=== PATIENT | male | born 1970 | race Caucasian/White ===

== ENCOUNTER 2017-02-07 06:36 | Observation (INO) | payer SELFPAY ==
[~2017-02-07] VITALS: Ht 182.9 cm; Wt 84.8 kg
--- NOTE | 2017-02-07 06:47 | PHYS DOC ---
Past Medical History Past Medical History: Kidney Stone, Other Additional Past Medical Histor: horshe kidney Past Surgical History: Other Additional Past Surgical Histo: lithotripsy Alcohol Use: Occasionally Drug Use: None Adult General Chief Complaint Chief Complaint: ABDOMINAL PAIN HPI HPI Patient is a 46 year old male who presents with left lower quadrant pain that radiates into his left testicle. He states this is same pains had before is a kidney stone. States he woke up this morning around 5 AM and started having this pain. This is constant in nature. He states it feels exactly like the last time he had his kidney stone. He didn't vomit one secondary to pain denies any blood in his vomit. He denies any dysuria but he has not had a chance urinate this morning as of yet. He denies any testicular pain but the pain does radiate into his testicle. Review of Systems Review of Systems Constitutional: Denies fever or chills [] Eyes: Denies change in visual acuity, redness, or eye pain [] HENT: Denies nasal congestion or sore throat [] Respiratory: Denies cough or shortness of breath [] Cardiovascular: No additional information not addressed in HPI [] GI: Denies , bloody stools or diarrhea , positive for abdominal pain, nausea, vomiting. : Denies dysuria or hematuria [] Musculoskeletal: Denies back pain or joint pain [] Integument: Denies rash or skin lesions [] Neurologic: Denies headache, focal weakness or sensory changes [] Endocrine: Denies polyuria or polydipsia [] Current Medications Current Medications Current Medications Medications (Trade) Dose Ordered Sig/Álvaro Start Time Stop Time Status Last Admin Dose Admin Hydromorphone HCl (Dilaudid) 1 mg PRN Q15MIN PRN 02/07/17 07:00 02/08/17 06:59 02/07/17 09:50 1 MG Iohexol (Omnipaque 300 Mg/ml) 75 ml 1X ONCE 02/07/17 09:00 02/07/17 09:01 UNV Morphine Sulfate 4 mg PRN Q15MIN PRN 02/07/17 07:00 02/07/17 07:00 DC Norepinephrine Bitartrate 250 ml @ 0 mls/hr 1X ONCE 02/07/17 08:00 02/07/17 08:01 UNV Sodium Chloride 1,000 ml @ 1,000 mls/hr 1X ONCE 02/07/17 08:00 02/07/17 08:59 DC 02/07/17 09:49 1,000 MLS/HR Allergies Allergies Allergies Coded Allergies Type Severity Reaction Last Updated Verified Iodinated Contrast Media - Oral and Allergy Severe 10/26/16 Yes NSAIDS (Non-Steroidal Anti-Inflamma Allergy Intermediate 10/26/16 Yes ketorolac Allergy Intermediate 10/26/16 Yes Physical Exam Physical Exam Constitutional: Well developed, well nourished, no acute distress, non-toxic appearance. [] HENT: Normocephalic, atraumatic, bilateral external ears normal, oropharynx moist, no oral exudates, nose normal. [] Eyes: PERRLA, EOMI, conjunctiva normal, no discharge. [] Neck: Normal range of motion, no tenderness, supple, no stridor. [] Cardiovascular:Heart rate regular rhythm, no murmur [] Lungs & Thorax: Bilateral breath sounds clear to auscultation [] Abdomen: Bowel sounds normal, soft, tender to palpation in the left lower flank , no rebound or guarding noted, no masses, no pulsatile masses. Testicles nontender, no masses appreciated bilaterally Skin: Warm, dry, no erythema, no rash. [] Back: No tenderness, no CVA tenderness. [] Extremities: No tenderness, no cyanosis, no clubbing, ROM intact, no edema. [] Neurologic: Alert and oriented X 3, normal motor function, normal sensory function, no focal deficits noted. [] Psychologic: Affect normal, judgement normal, mood normal. [] Current Patient Data Vital Signs Vital Signs Date Time Temp Pulse Resp B/P (MAP) Pulse Ox O2 Delivery O2 Flow Rate FiO2 02/07/17 09:50 14 02/07/17 06:49 98.1 105 167/103 (124) 100 Room Air 98.1 Lab Values Laboratory Tests Test 02/07/17 07:50 Urine Collection Type Unknown Urine Color Yellow Urine Clarity Clear Urine pH 7.5 Urine Specific [place] 1.020 Urine Protein Negative mg/dL (NEG-TRACE) Urine Glucose (UA) Negative mg/dL (NEG) Urine Ketones (Stick) Negative mg/dL (NEG) Urine Blood Negative (NEG) Urine Nitrite Negative (NEG) Urine Bilirubin Negative (NEG) Urine Urobilinogen Dipstick 1.0 mg/dL (0.2 mg/dL) Urine Leukocyte Esterase Negative (NEG) Urine RBC 0 /HPF (0-2) Urine WBC 0 /HPF (0-4) Urine Squamous Epithelial Cells Few /LPF Urine Bacteria 0 /HPF (0-FEW) Urine Mucus Marked /LPF Urine Opiates Screen Pos (NEG) Urine Methadone Screen Neg (NEG) Urine Barbiturates Neg (NEG) Urine Phencyclidine Screen Neg (NEG) Urine Amphetamine/Methamphetamine Pos (NEG) Urine Benzodiazepines Screen Neg (NEG) Urine Cocaine Screen Neg (NEG) Urine Cannabinoids Screen Neg (NEG) Urine Ethyl Alcohol Pos (NEG) EKG EKG [] Radiology/Procedures Radiology/Procedures [facility] [address] [place], [place] [id number] IMAGING REPORT Signed PATIENT: LAXMI TAVERAS ACCOUNT: [id number] : 1970 LOCATION: ER AGE: 46 SEX: M EXAM STATUS: REG ER ORD. PHYSICIAN: LEANNE HUNTER MD REASON: abd pain, ALLERGY TO IODINE PROCEDURE: CT ABDOMEN PELVIS WO CONTRAST Indication abdominal pain. Left flank pain. Hematuria. The history of prior renal calculi and lithotripsy is noted. Axial images through the abdomen and pelvis were obtained. The examination was tailored for the detection of renal and/or ureteral calculi. Note is made of a similar examination October 25, 2016. The lung bases are clear. The liver and spleen appear unremarkable and the gallbladder appears grossly normal. No adrenal pathology is seen. 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 There may be a minute left renal calculus. No hydronephrosis hydroureter or calcification is seen along the course of either ureter. No pancreatic abnormality is seen. Acute finding in the abdomen is not seen. No acute finding is apparent in the pelvis. IMPRESSION: No acute finding seen in the abdomen or pelvis PQRS Compliance Statement: One or more of the following individualized dose reduction techniques were utilized for this examination: 1. Automated exposure control 2. Adjustment of the mA and/or kV according to patient size 3. Use of iterative reconstruction technique DICTATED and SIGNED BY: MARCY CAMARILLO MD DATE: 02/07/17 0936 CC: LEANNE HUNTER MD; NO PCP ~ Course & Med Decision Making Course & Med Decision Making Pertinent Labs and Imaging studies reviewed. (See chart for details) Patient's abdominal pain is persistent and requiring IV Dilaudid. He is tachycardic. His urine does show signs of meth/amphetamines. He denies any use. He has received 2 L of normal saline and is being admitted with a CT scan that does not show any acute processes abdomen or pelvis. Patient's agreeable plans in stable condition this time with interim orders being written to Dr. Marie. Jean Disclaimer Jean Disclaimer This electronic medical record was generated, in whole or in part, using a voice recognition dictation system. Departure Departure Impression: Primary Impression: Abdominal pain Disposition: ADMITTED INPATIENT Admitting Physician: Jessica Marie Condition: STABLE Referrals: NO PCP (PCP) Problem Qualifiers Primary Impression: Abdominal pain Abdominal location: left lower quadrant Qualified Codes: R10.32 - Left lower quadrant pain LEANNE HUNTER MD February 07, 2017 06:47
[2017-02-07] MEDS ORDERED: MORPHINE SULFATE 4 MG/ML DISP.SYRIN. IV/SQ PRN (07:00)
[2017-02-07] MEDS ORDERED: IV NORMAL SALINE 1000ML BAG 1,000 ML IV SCH (07:00)
[2017-02-07] MEDS: HYDROmorphone 2 MG/ML VIAL IV/SQ PRN ×4 (07:26→09:50)
[2017-02-07 08:00] LABS: BILIRUBIN,URINE NEGATIVE (NEG); GLUCOSE,URINE NEGATIVE (NEG); NITRITE,URINE NEGATIVE (NEG); PH,URINE 7.5; PROTEIN,URINE NEGATIVE (NEG-TRACE)
[2017-02-07] MEDS ORDERED: IV NORMAL SALINE 1000ML BAG 1,000 ML IV ONE (08:00)
[2017-02-07] MEDS ORDERED: NOREPINEPHRIN PREMIX 250 ML IV ONE (08:00)
[2017-02-07 08:08] LABS: BARBITURATES NEG (NEG); BENZODIAZEPINES NEG (NEG); CANNABINOIDS NEG (NEG); COCAINE NEG (NEG); METHADONE NEG (NEG); OPIATES POS (NEG); PHENCYCLIDINE NEG (NEG)
[2017-02-07 08:29] LABS: BACTERIA,URINE 0 /HPF (0-FEW); RBC,URINE 0 /HPF (0-2); SQUAMOUS EPITHELIAL CELL,UR FEW /LPF; WBC,URINE 0 /HPF (0-4)
[2017-02-07] MEDS ORDERED: IOHEXOL 300 MG/ML 75 ML VIAL IV ONE (09:00)
--- NOTE | 2017-02-07 09:48 | RAD ---
Indication abdominal pain. Left flank pain. Hematuria. The history of prior renal calculi and lithotripsy is noted. Axial images through the abdomen and pelvis were obtained. The examination was tailored for the detection of renal and/or ureteral calculi. Note is made of a similar examination October 25, 2016. The lung bases are clear. The liver and spleen appear unremarkable and the gallbladder appears grossly normal. No adrenal pathology is seen. 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 There may be a minute left renal calculus. No hydronephrosis hydroureter or calcification is seen along the course of either ureter. No pancreatic abnormality is seen. Acute finding in the abdomen is not seen. No acute finding is apparent in the pelvis. IMPRESSION: No acute finding seen in the abdomen or pelvis PQRS Compliance Statement: One or more of the following individualized dose reduction techniques were utilized for this examination: 1. Automated exposure control 2. Adjustment of the mA and/or kV according to patient size 3. Use of iterative reconstruction technique
[2017-02-07 11:31] LABS: BASO % 0 % (0-3); EOS % 0 % (0-3); HEMATOCRIT 39.3 % (39.0-53.0); HEMOGLOBIN 13.4 g/dL (13.0-17.5); LYMPH # 0.9 x10^3/uL (1.0-4.8); LYMPH % 18 % (24-48); MEAN CORPUSCULAR HEMOGLOBIN 30 pg (25-35); MEAN CORPUSCULAR HGB CONC 34 g/dL (31-37); MEAN CORPUSCULAR VOLUME 88 fL (79-100); MONO % 8 % (0-9); NEUT % 74 % (31-73); PLATELET COUNT 173 x10^3/uL (140-400); RED BLOOD COUNT 4.49 x10^6/uL (4.30-5.70); RED CELL DISTRIBUTION WIDTH 14.2 % (11.5-14.5); WHITE BLOOD COUNT 5.2 x10^3/uL (4.0-11.0)
[2017-02-07 11:43] LABS: CALCIUM 8.1 mg/dL (8.5-10.1); CREATININE 0.8 mg/dL (0.7-1.3); GFR 103.6
[2017-02-07 11:49] LABS: ALBUMIN 3.1 g/dL (3.4-5.0); DIRECT BILIRUBIN 0.1 mg/dL (0.0-0.2); TOTAL BILIRUBIN 0.2 mg/dL (0.2-1.0); TOTAL PROTEIN 6.9 g/dL (6.4-8.2)
[2017-02-07 11:50] LABS: POTASSIUM 3.8 mmol/L (3.5-5.1)
[2017-02-07 11:54] LABS: INR 1.1 (0.8-1.1); PROTHROMBIN TIME PATIENT 13.3 SEC (11.7-14.0)
[2017-02-07 11:55] LABS: CKMB MASS 1.5 ng/mL (0.0-3.6)
[2017-02-07] MEDS ORDERED: MULTIVIT INFUSN,ADULT 4,VIT K 10 ML, FOLIC ACID 1 MG, THIAMINE 100 MG in IV RINGERS,LAC... IV ONE (12:30)
[2017-02-07] MEDS ORDERED: MORPHINE SULFATE 4 MG/ML DISP.SYRIN. IV PRN (12:30)
[2017-02-07] MEDS ORDERED: oxyCODONE IR 5 MG TABLET PO PRN (12:30)
[2017-02-07] MEDS: fentaNYL PF VIAL 100 MCG/2 ML VIAL IV PRN ×5 (14:52→22:27)
[2017-02-07 15:00] VITALS: BP 142/93
--- NOTE | 2017-02-07 15:13 | PDOC1 ---
History and Physical Date of Admission Date of Admission DATE: 02/07/17 TIME: 15:09 Identification/Chief Complaint Chief Complaint flank pain, left Problems: Source Source: Chart review, Patient History of Present Illness History of Present Illness Mr. Cooper, is a 46 year old male admit w. acute left lower quadrant pain. New flank pain to groin, prior hx of kidney stone. pain started 0500, is improved a little since presenting to the ER He is eating well, normal stool, no pain with stooling no pain to palpation to flank or abdomen or scrotum or testicle Past Medical History Past Medical History owns a [employer] Cardiovascular: No pertinent hx Pulmonary: No pertinent hx GI: No pertinent hx Heme/Onc: No pertinent hx Hepatobiliary: No pertinent hx Psych: No pertinent hx Family History Family History: No Significant Social History Smoke: No ALCOHOL: occassional Drugs: None Current Problem List Problem List Problems Medical Problems: (1) Abdominal pain Status: Acute Problems: Current Medications Current Medications Current Medications Morphine Sulfate 4 mg PRN Q15MIN PRN IV/SQ PAIN GREATER THAN 3/10; Start at 07:00; Stop 02/07/17 at 07:00; Status DC Sodium Chloride 1,000 ml @ 1,000 mls/hr Q1H IV Last administered on 02/07/17 07:00; Start 02/07/17 at 07:00; Stop 02/07/17 at 07:59; Status DC Hydromorphone HCl (Dilaudid) 1 mg PRN Q15MIN PRN IV/SQ PAIN GREATER THAN 3/10 Last administered on 02/07/17 09:50; Start 02/07/17 at 07:00; Stop 02/08/17 at 06: 59 Norepinephrine Bitartrate 250 ml @ 0 mls/hr 1X ONCE IV ; Start 02/07/17 at 08:00 ; Stop 02/07/17 at 08:01; Status UNV Sodium Chloride 1,000 ml @ 1,000 mls/hr 1X ONCE IV Last administered on 09:49; Start 02/07/17 at 08:00; Stop 02/07/17 at 08:59; Status DC Iohexol (Omnipaque 300 Mg/ml) 75 ml 1X ONCE IV ; Start 02/07/17 at 09:00; Stop 02/07/17 at 09:01; Status UNV Oxycodone HCl (Roxicodone) 5 mg PRN Q6HRS PRN PO PAIN Last administered on 13:25; Start 02/07/17 at 12:30 Morphine Sulfate 4 mg PRN Q2HR PRN IV PAIN; Start 02/07/17 at 12:30; Stop at 12:46; Status DC Multivitamins 10 ml/Folic Acid 1 mg/Thiamine HCl 100 mg/Ringer's Solution 1, 011.2 ml @ 1,000 mls/ hr 1X ONCE IV Last administered on 02/07/17 13:49; Start 02/07/17 at 12:30; Stop 02/07/17 at 13:30; Status DC Fentanyl Citrate (Fentanyl 2ml Vial) 50 mcg PRN Q2HR PRN IV PAIN Last administered on 02/07/17 14:52; Start 02/07/17 at 12:45 Allergies Allergies: Coded Allergies: Iodinated Contrast Media - Oral and (Verified Allergy, Severe, 10/26/16) morphine (Verified Allergy, Severe, Shortness of Air, 02/07/17) NSAIDS (Non-Steroidal Anti-Inflamma (Verified Allergy, Intermediate, ) ketorolac (Verified Allergy, Intermediate, 10/26/16) ROS General: No: Chills, Night Sweats, Fatigue, Malaise, Appetite, Other PSYCHOLOGICAL ROS: No: Anxiety, Behavioral Disorder, Concentration difficultie , Decreased libido, Depression, Disorientation, Hallucinations, Hostility, Irritablity, Memory difficulties, Mood Swings, Obsessive thoughts, Physical abuse, Sexual abuse, Sleep disturbances, Suicidal ideation, Other Eyes: No Blurry vision, No Decreased vision, No Double vision, No Dry eyes, No Excessive tearing, No Eye Pain, No Itchy Eyes, No Loss of vision, No Photophobia , No Scotomata, No Uses contacts, No Uses glasses, No Other HEENT: No: Heacaches, Visual Changes, Hearing change, Nasal congestion, Nasal discharge, Oral lesions, Sinus pain, Sore Throat, Epistaxis, Sneezing, Snoring, Tinnitus, Vertigo, Vocal changes, Other Respiratory: No: Cough, Hemoptysis, Orthopnea, Pleuritic Pain, Shortness of breath, SOB with excertion, Sputum Changes, Stridor, Tachypnea, Wheezing, Other Cardiovascular: No Chest Pain, No Palpitations, No Orthopnea, No Paroxysmal Noc. Dyspnea, No Edema, No Lt Headedness, No Other Gastrointestinal: Yes Nausea, Yes Abdominal Pain, No Vomiting, No Diarrhea, No Constipation, No Melena, No Hematochezia, No Other Genitourinary: No Dysuria, No Frequency, No Incontinence, No Hematuria, No Retention, No Discharge, No Urgency, No Pain, No Flank Pain, No Other, No , No , No , No , No , No , No Musculoskeletal: No Gait Disturbance, No Joint Pain, No Joint Stiffness, No Joint Swelling, No Muscle Pain, No Muscular Weakness, No Pain In:, No Swelling In:, No Other Neurological: No Behavorial Changes, No Bowel/Bladder ControlChng, No Confusion , No Dizziness, No Gait Disturbance, No Headaches, No Impaired Coord/balance, No Memory Loss, No Numbness/Tingling, No Seizures, No Speech Problems, No Tremors, No Visual Changes, No Weakness, No Other Skin: No Dry Skin, No Eczema, No Hair Changes, No Lumps, No Mole Changes, No Mottling, No Nail Changes, No Pruritus, No Rash, No Skin Lesion Changes, No Other, No Acne Physical Exam General: Alert, Oriented X3, Cooperative, No acute distress HEENT: PERRLA, EOMI, Mucous membr. moist/pink Lungs: Normal air movement Heart: no gallops, no murmurs Abdomen: Normal bowel sounds, Soft Extremities: No clubbing, No cyanosis, No edema Skin: No rashes, No breakdown Neuro: Normal tone, Sensation intact Psych/Mental Status: Mood NL Vitals Vitals Vital Signs Date Time Temp Pulse Resp B/P (MAP) Pulse Ox O2 Delivery O2 Flow Rate FiO2 02/07/17 14:52 Room Air 02/07/17 09:50 94 16 146/87 (106) 99 02/07/17 06:49 98.1 98.1 Labs Labs Laboratory Tests Test 02/07/17 07:50 02/07/17 11:17 Urine Collection Type Unknown Urine Color Yellow Urine Clarity Clear Urine pH 7.5 Urine Specific [place] 1.020 Urine Protein Negative mg/dL (NEG-TRACE) Urine Glucose (UA) Negative mg/dL (NEG) Urine Ketones (Stick) Negative mg/dL (NEG) Urine Blood Negative (NEG) Urine Nitrite Negative (NEG) Urine Bilirubin Negative (NEG) Urine Urobilinogen Dipstick 1.0 mg/dL (0.2 mg/dL) Urine Leukocyte Esterase Negative (NEG) Urine RBC 0 /HPF (0-2) Urine WBC 0 /HPF (0-4) Urine Squamous Epithelial Cells Few /LPF Urine Bacteria 0 /HPF (0-FEW) Urine Mucus Marked /LPF Urine Opiates Screen Pos (NEG) Urine Methadone Screen Neg (NEG) Urine Barbiturates Neg (NEG) Urine Phencyclidine Screen Neg (NEG) Urine Amphetamine/Methamphetamine Pos (NEG) Urine Benzodiazepines Screen Neg (NEG) Urine Cocaine Screen Neg (NEG) Urine Cannabinoids Screen Neg (NEG) Urine Ethyl Alcohol Pos (NEG) White Blood Count 5.2 x10^3/uL (4.0-11.0) Red Blood Count 4.49 x10^6/uL (4.30-5.70) Hemoglobin 13.4 g/dL (13.0-17.5) Hematocrit 39.3 % (39.0-53.0) Mean Corpuscular Volume 88 fL (79-100) Mean Corpuscular Hemoglobin 30 pg (25-35) Mean Corpuscular Hemoglobin Concent 34 g/dL (31-37) Red Cell Distribution Width 14.2 % (11.5-14.5) Platelet Count 173 x10^3/uL (140-400) Neutrophils (%) (Auto) 74 % (31-73) Lymphocytes (%) (Auto) 18 % (24-48) Monocytes (%) (Auto) 8 % (0-9) Eosinophils (%) (Auto) 0 % (0-3) Basophils (%) (Auto) 0 % (0-3) Neutrophils # (Auto) 3.9 x10^3uL (1.8-7.7) Lymphocytes # (Auto) 0.9 x10^3/uL (1.0-4.8) Monocytes # (Auto) 0.4 x10^3/uL (0.0-1.1) Eosinophils # (Auto) 0.0 x10^3/uL (0.0-0.7) Basophils # (Auto) 0.0 x10^3/uL (0.0-0.2) Prothrombin Time 13.3 SEC (11.7-14.0) Prothromb Time International Ratio 1.1 (0.8-1.1) Activated Partial Thromboplast Time 29 SEC (24-38) Sodium Level 141 mmol/L (136-145) Potassium Level 3.8 mmol/L (3.5-5.1) Chloride Level 107 mmol/L (98-107) Carbon Dioxide Level 26 mmol/L (21-32) Anion Gap 8 (6-14) Blood Urea Nitrogen 11 mg/dL (8-26) Creatinine 0.8 mg/dL (0.7-1.3) Estimated GFR (Cockcroft-Gault) 103.6 Glucose Level 124 mg/dL (70-99) Calcium Level 8.1 mg/dL (8.5-10.1) Total Bilirubin 0.2 mg/dL (0.2-1.0) Direct Bilirubin 0.1 mg/dL (0.0-0.2) Aspartate Amino Transf (AST/SGOT) 44 U/L (15-37) Alanine Aminotransferase (ALT/SGPT) 26 U/L (16-63) Alkaline Phosphatase 66 U/L (46-116) Creatine Kinase 356 U/L (39-308) Creatine Kinase MB (Mass) 1.5 ng/mL (0.0-3.6) Creatine Kinase MB Relative Index 0.4 % (0-4) Total Protein 6.9 g/dL (6.4-8.2) Albumin 3.1 g/dL (3.4-5.0) Lipase 144 U/L (73-393) Laboratory Tests Test 02/07/17 07:50 02/07/17 11:17 Urine Collection Type Unknown Urine Color Yellow Urine Clarity Clear Urine pH 7.5 Urine Specific [place] 1.020 Urine Protein Negative mg/dL (NEG-TRACE) Urine Glucose (UA) Negative mg/dL (NEG) Urine Ketones (Stick) Negative mg/dL (NEG) Urine Blood Negative (NEG) Urine Nitrite Negative (NEG) Urine Bilirubin Negative (NEG) Urine Urobilinogen Dipstick 1.0 mg/dL (0.2 mg/dL) Urine Leukocyte Esterase Negative (NEG) Urine RBC 0 /HPF (0-2) Urine WBC 0 /HPF (0-4) Urine Squamous Epithelial Cells Few /LPF Urine Bacteria 0 /HPF (0-FEW) Urine Mucus Marked /LPF Urine Opiates Screen Pos (NEG) Urine Methadone Screen Neg (NEG) Urine Barbiturates Neg (NEG) Urine Phencyclidine Screen Neg (NEG) Urine Amphetamine/Methamphetamine Pos (NEG) Urine Benzodiazepines Screen Neg (NEG) Urine Cocaine Screen Neg (NEG) Urine Cannabinoids Screen Neg (NEG) Urine Ethyl Alcohol Pos (NEG) White Blood Count 5.2 x10^3/uL (4.0-11.0) Red Blood Count 4.49 x10^6/uL (4.30-5.70) Hemoglobin 13.4 g/dL (13.0-17.5) Hematocrit 39.3 % (39.0-53.0) Mean Corpuscular Volume 88 fL (79-100) Mean Corpuscular Hemoglobin 30 pg (25-35) Mean Corpuscular Hemoglobin Concent 34 g/dL (31-37) Red Cell Distribution Width 14.2 % (11.5-14.5) Platelet Count 173 x10^3/uL (140-400) Neutrophils (%) (Auto) 74 % (31-73) Lymphocytes (%) (Auto) 18 % (24-48) Monocytes (%) (Auto) 8 % (0-9) Eosinophils (%) (Auto) 0 % (0-3) Basophils (%) (Auto) 0 % (0-3) Neutrophils # (Auto) 3.9 x10^3uL (1.8-7.7) Lymphocytes # (Auto) 0.9 x10^3/uL (1.0-4.8) Monocytes # (Auto) 0.4 x10^3/uL (0.0-1.1) Eosinophils # (Auto) 0.0 x10^3/uL (0.0-0.7) Basophils # (Auto) 0.0 x10^3/uL (0.0-0.2) Prothrombin Time 13.3 SEC (11.7-14.0) Prothromb Time International Ratio 1.1 (0.8-1.1) Activated Partial Thromboplast Time 29 SEC (24-38) Sodium Level 141 mmol/L (136-145) Potassium Level 3.8 mmol/L (3.5-5.1) Chloride Level 107 mmol/L (98-107) Carbon Dioxide Level 26 mmol/L (21-32) Anion Gap 8 (6-14) Blood Urea Nitrogen 11 mg/dL (8-26) Creatinine 0.8 mg/dL (0.7-1.3) Estimated GFR (Cockcroft-Gault) 103.6 Glucose Level 124 mg/dL (70-99) Calcium Level 8.1 mg/dL (8.5-10.1) Total Bilirubin 0.2 mg/dL (0.2-1.0) Direct Bilirubin 0.1 mg/dL (0.0-0.2) Aspartate Amino Transf (AST/SGOT) 44 U/L (15-37) Alanine Aminotransferase (ALT/SGPT) 26 U/L (16-63) Alkaline Phosphatase 66 U/L (46-116) Creatine Kinase 356 U/L (39-308) Creatine Kinase MB (Mass) 1.5 ng/mL (0.0-3.6) Creatine Kinase MB Relative Index 0.4 % (0-4) Total Protein 6.9 g/dL (6.4-8.2) Albumin 3.1 g/dL (3.4-5.0) Lipase 144 U/L (73-393) VTE Prophylaxis Ordered VTE Prophylaxis Devices: Yes VTE Pharmacological Prophylaxi: No Assessment/Plan Assessment/Plan acute abd pain, left flank symptoms consistent with renal colic, no stone seen on CT, could be too small a stone hydrate with IV fluid, banana bag X1, recent EtOH use, EtOH pos urine, he denied chronic use sudafed use recently, denies meth obs, DC if feels better RUPALI ALVAREZ MD February 07, 2017 15:13
[2017-02-07 19:03] VITALS: BP 138/94
[2017-02-07] MEDS: oxyCODONE IR 5 MG TABLET PO PRN (22:33)
[2017-02-07 23:04] VITALS: BP 128/92
[2017-02-08] MEDS: fentaNYL PF VIAL 100 MCG/2 ML VIAL IV PRN ×4 (02:44→10:45)
[2017-02-08 03:03] VITALS: BP 145/101
[2017-02-08] MEDS: oxyCODONE IR 5 MG TABLET PO PRN ×3 (05:42→19:20)
[2017-02-08 07:17] VITALS: BP 147/95
[2017-02-08 11:00] VITALS: BP 144/94
[2017-02-08] MEDS: HYDROmorphone 2 MG/ML VIAL IV PRN ×5 (12:19→22:53)
--- NOTE | 2017-02-08 13:23 | PDOC ---
PROGRESS NOTES Chief Complaint Chief Complaint acute abd pain, left flank ? renal colic, no stone seen on CT, sudafed use recently, denies meth use left scrotal, testicle pain History of Present Illness History of Present Illness pain worse, symptoms better wtih stronger IV pain med high pain med tolerance is concerning, UDS noted consult uro Ultrasound scrotum/testicle, no pain on exam Vitals Vitals Vital Signs Date Time Temp Pulse Resp B/P (MAP) Pulse Ox O2 Delivery O2 Flow Rate FiO2 02/08/17 12:19 Room Air 02/08/17 11:00 98.1 92 20 144/94 (111) 98 98.1 Physical Exam Physical Exam normal genitalia exam General: Alert, Oriented X3, Cooperative, No acute distress Heart: Regular rate Abdomen: Normal bowel sounds, Soft Extremities: No clubbing, No cyanosis, No edema Skin: No rashes, No breakdown Review of Systems Review of Systems no n/v/d pain, left flank now to left scrotum pain Assessment and Plan Assessmemt and Plan Problems Medical Problems: (1) Abdominal pain Status: Acute Problems: Comment Review of Relevant I have reviewed the following items tennille (where applicable) has been applied. Labs Laboratory Tests Test 02/07/17 07:50 02/07/17 11:17 Urine Collection Type Unknown Urine Color Yellow Urine Clarity Clear Urine pH 7.5 Urine Specific [place] 1.020 Urine Protein Negative mg/dL (NEG-TRACE) Urine Glucose (UA) Negative mg/dL (NEG) Urine Ketones (Stick) Negative mg/dL (NEG) Urine Blood Negative (NEG) Urine Nitrite Negative (NEG) Urine Bilirubin Negative (NEG) Urine Urobilinogen Dipstick 1.0 mg/dL (0.2 mg/dL) Urine Leukocyte Esterase Negative (NEG) Urine RBC 0 /HPF (0-2) Urine WBC 0 /HPF (0-4) Urine Squamous Epithelial Cells Few /LPF Urine Bacteria 0 /HPF (0-FEW) Urine Mucus Marked /LPF Urine Opiates Screen Pos (NEG) Urine Methadone Screen Neg (NEG) Urine Barbiturates Neg (NEG) Urine Phencyclidine Screen Neg (NEG) Urine Amphetamine/Methamphetamine Pos (NEG) Urine Benzodiazepines Screen Neg (NEG) Urine Cocaine Screen Neg (NEG) Urine Cannabinoids Screen Neg (NEG) Urine Ethyl Alcohol Pos (NEG) White Blood Count 5.2 x10^3/uL (4.0-11.0) Red Blood Count 4.49 x10^6/uL (4.30-5.70) Hemoglobin 13.4 g/dL (13.0-17.5) Hematocrit 39.3 % (39.0-53.0) Mean Corpuscular Volume 88 fL (79-100) Mean Corpuscular Hemoglobin 30 pg (25-35) Mean Corpuscular Hemoglobin Concent 34 g/dL (31-37) Red Cell Distribution Width 14.2 % (11.5-14.5) Platelet Count 173 x10^3/uL (140-400) Neutrophils (%) (Auto) 74 % (31-73) Lymphocytes (%) (Auto) 18 % (24-48) Monocytes (%) (Auto) 8 % (0-9) Eosinophils (%) (Auto) 0 % (0-3) Basophils (%) (Auto) 0 % (0-3) Neutrophils # (Auto) 3.9 x10^3uL (1.8-7.7) Lymphocytes # (Auto) 0.9 x10^3/uL (1.0-4.8) Monocytes # (Auto) 0.4 x10^3/uL (0.0-1.1) Eosinophils # (Auto) 0.0 x10^3/uL (0.0-0.7) Basophils # (Auto) 0.0 x10^3/uL (0.0-0.2) Prothrombin Time 13.3 SEC (11.7-14.0) Prothromb Time International Ratio 1.1 (0.8-1.1) Activated Partial Thromboplast Time 29 SEC (24-38) Sodium Level 141 mmol/L (136-145) Potassium Level 3.8 mmol/L (3.5-5.1) Chloride Level 107 mmol/L (98-107) Carbon Dioxide Level 26 mmol/L (21-32) Anion Gap 8 (6-14) Blood Urea Nitrogen 11 mg/dL (8-26) Creatinine 0.8 mg/dL (0.7-1.3) Estimated GFR (Cockcroft-Gault) 103.6 Glucose Level 124 mg/dL (70-99) Calcium Level 8.1 mg/dL (8.5-10.1) Total Bilirubin 0.2 mg/dL (0.2-1.0) Direct Bilirubin 0.1 mg/dL (0.0-0.2) Aspartate Amino Transf (AST/SGOT) 44 U/L (15-37) Alanine Aminotransferase (ALT/SGPT) 26 U/L (16-63) Alkaline Phosphatase 66 U/L (46-116) Creatine Kinase 356 U/L (39-308) Creatine Kinase MB (Mass) 1.5 ng/mL (0.0-3.6) Creatine Kinase MB Relative Index 0.4 % (0-4) Total Protein 6.9 g/dL (6.4-8.2) Albumin 3.1 g/dL (3.4-5.0) Lipase 144 U/L (73-393) Medications Current Medications Morphine Sulfate 4 mg PRN Q15MIN PRN IV/SQ PAIN GREATER THAN 3/10; Start at 07:00; Stop 02/07/17 at 07:00; Status DC Sodium Chloride 1,000 ml @ 1,000 mls/hr Q1H IV Last administered on 02/07/17 07:00; Start 02/07/17 at 07:00; Stop 02/07/17 at 07:59; Status DC Hydromorphone HCl (Dilaudid) 1 mg PRN Q15MIN PRN IV/SQ PAIN GREATER THAN 3/10 Last administered on 02/07/17 09:50; Start 02/07/17 at 07:00; Stop 02/08/17 at 06: 59; Status DC Norepinephrine Bitartrate 250 ml @ 0 mls/hr 1X ONCE IV ; Start 02/07/17 at 08:00 ; Stop 02/07/17 at 08:01; Status UNV Sodium Chloride 1,000 ml @ 1,000 mls/hr 1X ONCE IV Last administered on 09:49; Start 02/07/17 at 08:00; Stop 02/07/17 at 08:59; Status DC Iohexol (Omnipaque 300 Mg/ml) 75 ml 1X ONCE IV ; Start 02/07/17 at 09:00; Stop 02/07/17 at 09:01; Status UNV Oxycodone HCl (Roxicodone) 5 mg PRN Q6HRS PRN PO PAIN Last administered on 13:25; Start 02/07/17 at 12:30; Stop 02/07/17 at 17:50; Status DC Morphine Sulfate 4 mg PRN Q2HR PRN IV PAIN; Start 02/07/17 at 12:30; Stop at 12:46; Status DC Multivitamins 10 ml/Folic Acid 1 mg/Thiamine HCl 100 mg/Ringer's Solution 1, 011.2 ml @ 1,000 mls/ hr 1X ONCE IV Last administered on 02/07/17 13:49; Start 02/07/17 at 12:30; Stop 02/07/17 at 13:30; Status DC Fentanyl Citrate (Fentanyl 2ml Vial) 50 mcg PRN Q2HR PRN IV PAIN Last administered on 02/07/17 16:56; Start 02/07/17 at 12:45; Stop 02/07/17 at 17:50; Status DC Fentanyl Citrate (Fentanyl 2ml Vial) 75 mcg PRN Q2HR PRN IV PAIN Last administered on 02/08/17 10:45; Start 02/07/17 at 17:45 Oxycodone HCl (Roxicodone) 10 mg PRN Q4HRS PRN PO PAIN Last administered on 02/08 10:45; Start 02/07/17 at 22:30 Hydromorphone HCl (Dilaudid) 1 mg PRN Q2HRS PRN IV PAIN Last administered on 12:19; Start 02/08/17 at 12:15 Active Scripts Active Reported No Known Medications Prior To Admisstion (Info) Each 1 Each Vitals/I & O Vital Sign - Last 24 Hours 02/07/17 02/07/17 02/07/17 02/07/17 13:25 14:52 14:52 15:00 Temp 98.3 98.3 Pulse 104 Resp 20 B/P (MAP) 142/93 (109) Pulse Ox 98 O2 Delivery Room Air Room Air Room Air Room Air 02/07/17 02/07/17 02/07/17 02/07/17 16:56 17:30 18:19 19:03 Temp 97.9 97.9 Pulse 93 Resp 16 B/P (MAP) 138/94 (109) Pulse Ox 99 O2 Delivery Room Air Room Air Room Air Room Air 02/07/17 02/07/17 02/07/17 02/07/17 20:00 20:21 22:27 23:04 Temp 97.7 97.7 Pulse 79 Resp 18 18 B/P (MAP) 128/92 (104) Pulse Ox 98 O2 Delivery Room Air Room Air Room Air 02/08/17 02/08/17 02/08/17 02/08/17 02:44 03:03 05:42 07:17 Temp 97.5 97.9 97.5 97.9 Pulse 50 79 Resp 18 18 20 B/P (MAP) 145/101 (116) 147/95 (112) Pulse Ox 99 99 O2 Delivery Room Air Room Air Room Air 02/08/17 02/08/17 02/08/17 02/08/17 07:25 07:50 10:45 10:45 O2 Delivery Room Air Room Air Room Air Room Air 02/08/17 02/08/17 02/08/17 02/08/17 11:00 11:20 11:46 12:19 Temp 98.1 98.1 Pulse 92 Resp 20 B/P (MAP) 144/94 (111) Pulse Ox 98 O2 Delivery Room Air Room Air Room Air Room Air Intake and Output 02/07/17 02/07/17 02/08/17 15:00 23:00 07:00 Intake Total 728 ml 0 ml Balance 728 ml 0 ml RUPALI ALVAREZ MD February 08, 2017 13:23
[2017-02-08 15:00] VITALS: BP 138/91
[2017-02-08 19:47] VITALS: BP 144/93
[2017-02-08 23:17] VITALS: BP 134/86
[2017-02-09] MEDS: HYDROmorphone 2 MG/ML VIAL IV PRN ×8 (01:10→19:56)
[2017-02-09] MEDS: oxyCODONE IR 5 MG TABLET PO PRN ×4 (01:10→18:24)
[2017-02-09 03:11] VITALS: BP 142/97
--- NOTE | 2017-02-09 05:06 | ACF ---
Admission Forms Criteria ABDOMINAL PAIN Clinical Indications for Admission to Inpatient Care (Place 'X' for any and all applicable criteria): Admission is indicated for ANY ONE of the following(1)(2)(3)(4)(5): [X]I. Inpatient admission required rather than observation care (Also use Abdominal Pain: Observation Care, as appropriate) because of ANY ONE of the following: [X]a) Severe pain requiring acute inpatient management [ ]b) Identification of etiology/finding that requires inpatient care (eg, aortic dissection, free air) [ ]c) Absent bowel sounds with complete ileus(6) [ ]d) Suspected toxic megacolon [ ]e) Severe electrolyte abnormalities requiring inpatient care [ ]f) High fever or infection requiring inpatient admission as indicated by ANY ONE of following(7)(8): [ ] i) Appropriate outpatient or observational care antimicrobial treatment unavailable, not effective, or not feasible [ ] ii) Documented bacteremia [ ] iii) Temperature > 104.9 degrees F (oral) [ ] iv) T >103.1 F (oral) or < 96.8 F(rectal) that does not respond to all emergency treatment measures [ ]g) Signs of intestinal obstruction [B] [ ]h) Hemodynamic instability [ ]i) IV fluid to replace significant ongoing losses (greater than 3 L/m2 per day) (12)(13) [ ]j) Percutaneous or open drainage (eg, abscess, biliary tract ) procedures [ ]k) Parenteral nutrition regimen that must be implemented on inpatient basis [ ]l) Other condition,treatment or monitoring requiring inpatient admission. [ ]II. Peritoneal signs present [ ]III. Surgery needed that cannot be performed on an ambulatory basis. [ ]IV. Evaluation requires patient to not eat or drink for extended period ( eg, more than 24 hours). [ ]V. Contraindications and/or Inappropriate clinical situations for Observational Care in patients with abdominal pain, when ANY ONE of the following is required: [ ]a) Thorough evaluation is required to prevent catastrophic events due to delays in diagnosing (e.g.Mesenteric ischemia) 1,3 [ ]b) Patient with severe pathology or with chronic symptoms unlikely to improve in the ED stay (3) [ ]. General contraindications and/or Inappropriate clinical situations for Observational Care in patients with abdominal pain, when ANY ONE of the following is required: [ ]a) Prediction of prolongation of LOS based on ANY ONE of the following may be considered as a contraindication for observational care 2, 3, 4, 5, 6, 7, 8, 9, 10, 11 [ ]i) Age > 65 yrs. [ ]ii) Patient arriving by ambulance [ ]iii) Patient with high acuity [ ]iv) Patient requiring vital sign monitoring [ ]v) Patient on IV medication [ ]b) Systolic blood pressures 180mmHg 3,12 [ ]c) Patient with altered mental status including delirium and other alteration of consciousness, (3) [ ]d) Patient whose discharge disposition will be to a assisted home or rehabilitation home should not be managed in Emergency Department Observation Unit. CMS rule requires 3 days hospital stay before such placement.3,13 [ ]e) Patient with failure to thrive due to broad array of etiologies 3,16,17 [ ]f) Inability to ambulate 3,14 Extended stay beyond goal length of stay may be needed for(2)(3): [ ]a) Persistent abdominal pain with suspected intra-abdominal process [ ]b) Diagnosed condition requiring continued stay (e.g., pancreatitis, complicated diverticulitis) [ ]c) Surgery (e.g., colectomy) The original [facility] content created by [employer] has been revised. The portions of the content which have been revised are identified through the use of italic text or in bold, and [facility] has neither reviewed nor approved the modified material.All other unmodified content is copyright [employer]. Please see references footnoted in the original [facility] edition 2016 MJ ROBERTS February 09, 2017 05:06
[2017-02-09 07:00] VITALS: BP 133/93
--- NOTE | 2017-02-09 07:26 | RAD ---
Indication: Left testicular pain. The right testicle measures 3.0 x 2.5 x 1.6 cm and the left testicle measures 3.0 x 2.5 x 1.4 cm. Both testes demonstrate normal homogeneous echotexture. No discrete mass is detected. There is blood flow to both testes. Epididymides are unremarkable apart from a tiny 2 mm left epididymal head cyst. There are bilateral hydroceles present, right greater. Impression: No evidence of testicular mass or vascular compromise. There are small bilateral hydroceles. There is also a tiny left epididymal cyst.
[2017-02-09 10:55] VITALS: BP 131/87
--- NOTE | 2017-02-09 11:09 | PDOC ---
PROGRESS NOTES Subjective Subjective Pt. with left abd pain Objective Objective Vital Signs Date Time Temp Pulse Resp B/P (MAP) Pulse Ox O2 Delivery O2 Flow Rate FiO2 02/09/17 10:55 97.5 89 20 131/87 (102) 98 Room Air 97.5 Intake and Output 02/09/17 07:00 Intake Total 360 ml Balance 360 ml Intake Oral 360 ml # Voids 9 # Bowel Movements 1 Physical Exam Physical Exam Horseshoe kidney-hydro or ureteral stone UA neg Plan Plan of Care Lasix renal scan flomax check PVR Problems Medical Problems: (1) Abdominal pain Status: Acute Comment Review of Relevant I have reviewed the following items tennille (where applicable) has been applied. Labs Laboratory Tests Test 02/07/17 11:17 White Blood Count 5.2 x10^3/uL (4.0-11.0) Red Blood Count 4.49 x10^6/uL (4.30-5.70) Hemoglobin 13.4 g/dL (13.0-17.5) Hematocrit 39.3 % (39.0-53.0) Mean Corpuscular Volume 88 fL (79-100) Mean Corpuscular Hemoglobin 30 pg (25-35) Mean Corpuscular Hemoglobin Concent 34 g/dL (31-37) Red Cell Distribution Width 14.2 % (11.5-14.5) Platelet Count 173 x10^3/uL (140-400) Neutrophils (%) (Auto) 74 % (31-73) Lymphocytes (%) (Auto) 18 % (24-48) Monocytes (%) (Auto) 8 % (0-9) Eosinophils (%) (Auto) 0 % (0-3) Basophils (%) (Auto) 0 % (0-3) Neutrophils # (Auto) 3.9 x10^3uL (1.8-7.7) Lymphocytes # (Auto) 0.9 x10^3/uL (1.0-4.8) Monocytes # (Auto) 0.4 x10^3/uL (0.0-1.1) Eosinophils # (Auto) 0.0 x10^3/uL (0.0-0.7) Basophils # (Auto) 0.0 x10^3/uL (0.0-0.2) Prothrombin Time 13.3 SEC (11.7-14.0) Prothromb Time International Ratio 1.1 (0.8-1.1) Activated Partial Thromboplast Time 29 SEC (24-38) Sodium Level 141 mmol/L (136-145) Potassium Level 3.8 mmol/L (3.5-5.1) Chloride Level 107 mmol/L (98-107) Carbon Dioxide Level 26 mmol/L (21-32) Anion Gap 8 (6-14) Blood Urea Nitrogen 11 mg/dL (8-26) Creatinine 0.8 mg/dL (0.7-1.3) Estimated GFR (Cockcroft-Gault) 103.6 Glucose Level 124 mg/dL (70-99) Calcium Level 8.1 mg/dL (8.5-10.1) Total Bilirubin 0.2 mg/dL (0.2-1.0) Direct Bilirubin 0.1 mg/dL (0.0-0.2) Aspartate Amino Transf (AST/SGOT) 44 U/L (15-37) Alanine Aminotransferase (ALT/SGPT) 26 U/L (16-63) Alkaline Phosphatase 66 U/L (46-116) Creatine Kinase 356 U/L (39-308) Creatine Kinase MB (Mass) 1.5 ng/mL (0.0-3.6) Creatine Kinase MB Relative Index 0.4 % (0-4) Total Protein 6.9 g/dL (6.4-8.2) Albumin 3.1 g/dL (3.4-5.0) Lipase 144 U/L (73-393) Medications Current Medications Morphine Sulfate 4 mg PRN Q15MIN PRN IV/SQ PAIN GREATER THAN 3/10; Start at 07:00; Stop 02/07/17 at 07:00; Status DC Sodium Chloride 1,000 ml @ 1,000 mls/hr Q1H IV Last administered on 02/07/17 07:00; Start 02/07/17 at 07:00; Stop 02/07/17 at 07:59; Status DC Hydromorphone HCl (Dilaudid) 1 mg PRN Q15MIN PRN IV/SQ PAIN GREATER THAN 3/10 Last administered on 02/07/17 09:50; Start 02/07/17 at 07:00; Stop 02/08/17 at 06: 59; Status DC Norepinephrine Bitartrate 250 ml @ 0 mls/hr 1X ONCE IV ; Start 02/07/17 at 08:00 ; Stop 02/07/17 at 08:01; Status UNV Sodium Chloride 1,000 ml @ 1,000 mls/hr 1X ONCE IV Last administered on 09:49; Start 02/07/17 at 08:00; Stop 02/07/17 at 08:59; Status DC Iohexol (Omnipaque 300 Mg/ml) 75 ml 1X ONCE IV ; Start 02/07/17 at 09:00; Stop 02/07/17 at 09:01; Status UNV Oxycodone HCl (Roxicodone) 5 mg PRN Q6HRS PRN PO PAIN Last administered on 13:25; Start 02/07/17 at 12:30; Stop 02/07/17 at 17:50; Status DC Morphine Sulfate 4 mg PRN Q2HR PRN IV PAIN; Start 02/07/17 at 12:30; Stop at 12:46; Status DC Multivitamins 10 ml/Folic Acid 1 mg/Thiamine HCl 100 mg/Ringer's Solution 1, 011.2 ml @ 1,000 mls/ hr 1X ONCE IV Last administered on 02/07/17 13:49; Start 02/07/17 at 12:30; Stop 02/07/17 at 13:30; Status DC Fentanyl Citrate (Fentanyl 2ml Vial) 50 mcg PRN Q2HR PRN IV PAIN Last administered on 02/07/17 16:56; Start 02/07/17 at 12:45; Stop 02/07/17 at 17:50; Status DC Fentanyl Citrate (Fentanyl 2ml Vial) 75 mcg PRN Q2HR PRN IV PAIN Last administered on 02/08/17 10:45; Start 02/07/17 at 17:45; Stop 02/08/17 at 19:00; Status DC Oxycodone HCl (Roxicodone) 10 mg PRN Q4HRS PRN PO PAIN Last administered on 02/09 07:13; Start 02/07/17 at 22:30 Hydromorphone HCl (Dilaudid) 1 mg PRN Q2HRS PRN IV PAIN Last administered on 10:54; Start 02/08/17 at 12:15 Active Scripts Active Reported No Known Medications Prior To Admisstion (Info) Each 1 Each Vitals/I & O Vital Sign - Last 24 Hours 02/08/17 02/08/17 02/08/17 02/08/17 11:20 12:19 15:00 15:17 Temp 98.3 98.3 Pulse 85 Resp 20 B/P (MAP) 138/91 (107) Pulse Ox 100 O2 Delivery Room Air Room Air Room Air Room Air 02/08/17 02/08/17 02/08/17 02/08/17 17:23 19:20 19:47 19:58 Temp 98.1 98.1 Pulse 93 Resp 18 18 B/P (MAP) 144/93 (110) Pulse Ox 97 O2 Delivery Room Air Room Air Room Air 02/08/17 02/08/17 02/09/17 02/09/17 22:53 23:17 01:10 02:00 Temp 97.9 97.9 Pulse 78 Resp 18 18 18 18 B/P (MAP) 134/86 (102) Pulse Ox 96 O2 Delivery Room Air Room Air 02/09/17 02/09/17 02/09/17 02/09/17 03:11 04:14 07:00 07:13 Temp 97.8 97.5 97.8 97.5 Pulse 82 80 Resp 18 18 20 B/P (MAP) 142/97 (112) 133/93 (106) Pulse Ox 98 97 O2 Delivery Room Air Room Air Room Air 02/09/17 02/09/17 02/09/17 02/09/17 07:30 08:00 08:00 10:00 O2 Delivery Room Air Room Air Room Air Room Air 02/09/17 02/09/17 10:54 10:55 Temp 97.5 97.5 Pulse 89 Resp 20 B/P (MAP) 131/87 (102) Pulse Ox 98 O2 Delivery Room Air Room Air Intake and Output 02/08/17 02/08/17 02/09/17 15:00 23:00 07:00 Intake Total 360 ml 0 ml Balance 360 ml 0 ml HOSSEIN BROWN MD February 09, 2017 11:09
[2017-02-09] MEDS: TAMSULOSIN 0.4 MG CAP.ER.24H. PO SCH (12:16)
[2017-02-09] MEDS ORDERED: FUROSEMIDE 40 MG/4 ML VIAL. IVP ONE (12:30)
--- NOTE | 2017-02-09 13:36 | PDOC ---
PROGRESS NOTES Chief Complaint Chief Complaint Acute abd/flank pain ASSESSMENT AND PLAN: 1. L Abd/flank pain: ? renal colic. CT abd/pelvis: "may be a minute left renal calculus. No hydronephrosis hydroureter or calcification is seen along the course of either ureter." appreciate Dr Matos's input. add.l imaging pending 2. L scrotal/ testicular pain: on evidence of abn on dedicated US... 3. Narcotic use: states pain clearly incongruous with physical exam and mobility, which is completely unaffected. wean off IV, then PO narcotics. toradol PRN 4. Multisubstance abuse: initial UDS pos for meth, opiates and EtOH. 5. Dispo: prob home in AM, as long as lasix renal scan is neg History of Present Illness History of Present Illness c/o flank/groin pain. able to move w/o difficulties. got lasix earlier (for renal scan); able to run to [facility] with urinary urgency. Vitals Vitals Vital Signs Date Time Temp Pulse Resp B/P (MAP) Pulse Ox O2 Delivery O2 Flow Rate FiO2 02/09/17 12:43 Room Air 02/09/17 10:55 97.5 89 20 131/87 (102) 98 97.5 Physical Exam Physical Exam normal genitalia exam General: Alert, Oriented X3, Cooperative, No acute distress Heart: Regular rate Lungs: Clear Abdomen: Normal bowel sounds, Soft Extremities: No edema Skin: No rashes AIMEE SCHOFIELD MD February 09, 2017 13:36
[2017-02-09] MEDS ORDERED: KETOROLAC TROMETHAMINE 30 MG/ML INJ. IV PRN (18:00)
[2017-02-09 19:00] VITALS: BP 120/84
[2017-02-09 23:00] VITALS: BP 115/77
[2017-02-10] MEDS: HYDROmorphone 2 MG/ML VIAL IV PRN ×4 (00:54→13:04)
--- NOTE | 2017-02-10 01:27 | CONS ---
DATE OF CONSULTATION: 02/09/2017 PATIENT'S ROOM: 408. HISTORY OF PRESENT ILLNESS: The patient is a very pleasant 46-year-old white male who was admitted on 02/07/2017, with left-sided flank and abdominal pain. The patient stated it had been going on a couple days. The patient was seen and evaluated. Urine was found to be negative for red cells, negative for white cells, negative for bacteria. Creatinine is 0.8. White count 5.2. 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 The patient also had a scrotal ultrasound, which showed no testicular mass, small bilateral hydroceles and a tiny left epididymal cyst. The patient reports a history of having had a urethral stricture as a teenager, which was treated by ____. The patient has had a urinary tract infection and was treated back in October of this year for that. PHYSICAL EXAMINATION: ABDOMEN: Soft. The patient with some left-sided abdominal tenderness, minimal left CVA tenderness. VITAL SIGNS: The patient is afebrile. GENITOURINARY: Testes are descended bilaterally, nonswollen, no masses. Phallus within normal limits. RECTAL: Good sphincter tone. Prostate smooth, nontender, without nodules, overall size 10 grams. PLAN: I talked with the patient concerning his symptomatology. THE PATIENT IS ALLERGIC TO IV CONTRAST. We will get a Lasix renal scan just to rule out any true obstruction with his history of the horseshoe kidney, also checked a postvoid residual on the patient and start him on Flomax and then proceed accordingly. I certainly appreciate being allowed to participate in this patient's care. HOSSEIN BROWN MD DR: ERNIE/tra JOB#: [id number] / [id number]
[2017-02-10 03:00] VITALS: BP 120/79
[2017-02-10 07:00] VITALS: BP 111/73
[2017-02-10] MEDS: TAMSULOSIN 0.4 MG CAP.ER.24H. PO SCH (08:16)
[2017-02-10] MEDS: oxyCODONE IR 5 MG TABLET PO PRN ×2 (08:16→14:21)
[2017-02-10 11:00] VITALS: BP 119/75
--- NOTE | 2017-02-14 01:58 | DS ---
DATE OF DISCHARGE: 02/10/2017 CHIEF COMPLAINT: Acute abdomen and flank pain. HOSPITAL COURSE: The patient is a 46-year-old gentleman who presented with left abdominal and flank pain radiating into his groin. Although symptoms were consistent with renal colic, CT of abdomen and testicular ultrasound did not reveal any abnormalities. A Lasix renal scan was requested by Urology, the patient however declined. Without any further workup planned and no acute findings, the patient was discharged to home. Of note, he did request maximum amounts of IV Dilaudid as long as available. Strong suspicion for narcotic-seeking behavior, especially given incongruence between pain complaints and mobility. DISCHARGE DISPOSITION: To home. DISCHARGE CONDITION: Improved. DISCHARGE DIAGNOSES: Flank pain, possibly muscular. DISCHARGE MEDICATIONS: Please refer to MAR. DISCHARGE INSTRUCTIONS: The patient will follow up with PCP. AIMEE SCHOFIELD MD DR: RE/nts JOB#: [id number] / [id number] HEATHER
== END 2017-02-10 18:50 | disposition home or self-care (01) ==
LOC: ER 06:36 → 4 NORTH 11:05
PROVIDERS: ADMIT Internal Medicine; ATTEND Internal Medicine
DX: R10.0 Acute abdomen (principal); N50.819 Testicular pain, unspecified; Q63.1 Lobulated, fused and horseshoe kidney; Z87.442 Personal history of urinary calculi
CPT/HCPCS: 36415; 74176; 76870; 80048; 80076; 81001; 82553; 83690; 85027; 85610; 85730; 96361; 96372; 96375; 96376; 99285; G0378; G0481; J1170; J1940; J3010; J7030; 96365; G0379; J7120